=== PATIENT | female | born 1945 | race Caucasian/White ===

== ENCOUNTER 2017-07-18 19:16 | Inpatient (IN) ==
[2017-07-18] MEDS ORDERED: HYDROmorphone 2 MG/ML VIAL IM ONE (20:36)
[2017-07-18] MEDS ORDERED: PROMETHAZINE 50 MG/ML AMPUL IM ONE (20:37)
--- NOTE | 2017-07-18 21:13 | XRay Report ---
CLINICAL INFORMATION: Fall. Left hip pain. TECHNIQUE: AP pelvis and bilateral hips. AP and lateral left hip. COMPARISON: None. FINDINGS: Negative. No left hip fracture. Mild bilaterally symmetric degenerative joint disease. There is a fracture of the superior left pubic bone. There is a nondisplaced left inferior pubic ramus fracture. Right hemipelvis is negative. Sacrum is negative Incidental note is made of atherosclerotic calcification. IMPRESSION: 1. Negative left hip. 2. Fractures of the left superior and inferior pubic rami. Interpreted and Authenticated by: Alphonse Squires 07/18/17
--- NOTE | 2017-07-18 21:24 | Cat Scan Report ---
CLINICAL INFORMATION: Fall. Left hip pain. TECHNIQUE: Thin section axial images through the pelvis and hips. Sagittal and coronal reformatted images COMPARISON: Plain film examination dated 07/18/2017 FINDINGS: Fractures of the left superior pubic bone. There are fractures of the mid superior pubic ramus and near the midline. Nondisplaced left inferior pubic ramus fracture. There is a vertically oriented fracture of the left sacral wing. This is nondisplaced. Right hemipelvis is negative. Hips are negative. No acute fracture. No significant intrapelvic hematoma IMPRESSION: 1. Fractures of the left superior and inferior pubic bone 2. Fracture of the left sacral wing Interpreted and Authenticated by: Alphonse Squires 07/18/17
--- NOTE | 2017-07-18 21:52 | Emergency Department Note ---
Lower Extremity Injury HPI - General Chief Complaint: Extremity Injury, Lower Stated Complaint: L hip pain r/t fall Time Seen by Provider: 07/18/17 19:25 Source: patient Mode of arrival: wheelchair Limitations: no limitations - History of Present Illness HPI Narrative: Patient presents today following a fall, she states she was walking in her home with her walker on hardwood floors, her walker got ahead of her and she slipped and fell landing on her left side on the floor, her states she laid there for approximately 3-4 hours, until he got home and was able to call the ambulance, he states her dog was right there beside her the entire time, she is not sure if she struck her head or has loss of consciousness when they tried to move her the pain was localized in the left hip and pelvis region, denies numbness and tingling into the legs and feet, She was brought in via ambulance MD complaint: hip injury Onset (ago): hour(s) Injury: Left: hip, pelvis Type of Injury: blunt Place: home Severity: moderate Severity scale (1-10): 6 Improves with: nothing Worsens with: weight bearing, movement Context: fall, direct blow Associated symptoms: Reports: unable to bear weight - Related Data Home Medications Medication Instructions Recorded Confirmed aspirin 81 mg tablet,delayed 81 mg PO QDAY tab 01/03/15 07/18/17 release Previous Rx's Medication Instructions Recorded ascorbic acid (vitamin C) 500 mg 500 mg PO QDAY #90 tab 01/09/16 tablet ferrous gluconate 325 mg (36 mg 325 mg PO QDAY #90 tab 01/09/16 iron) tablet isosorbide mononitrate ER 30 mg 30 mg PO QAM #30 tab 07/01/16 tablet,extended release 24 hr atorvastatin 80 mg tablet 80 mg PO QDAY #90 tab 12/18/16 carvedilol 6.25 mg tablet 6.25 mg PO BID #180 tab 12/18/16 spironolactone 25 mg tablet 25 mg PO QDAY #90 tab 12/18/16 duloxetine 40 mg capsule,delayed 40 mg PO QDAY #30 cap 05/06/17 release insulin aspart 100 unit/mL See Dose Instructions SUB-Q TID #3 05/06/17 subcutaneous pen ml insulin glargine 300 unit/mL (1.5 65 unit SUB-Q QHS #1.5 ml 05/06/17 mL) subcutaneous pen furosemide 40 mg tablet 40 mg PO QDAY #90 tab 05/13/17 potassium chloride ER 10 mEq 20 meq PO QDAY #180 cap 06/29/17 capsule,extended release Allergies Allergy/AdvReac Type Severity Reaction Status Date / Time metformin Allergy Unknown Muscle Pain Verified 05/06/17 10:33 statin AdvReac Unknown muscle Uncoded 05/06/17 10:33 cramps Review of Systems All systems ED: reviewed and negative except as stated. Past Medical History - Past Medical History Medical history: Reports: CHF, coronary artery disease, CVA, DM, hyperlipidemia , hypertension, osteoporosis, valvular heart disease Surgical history ED: Reports: angioplasty/stent, pacemaker/AICD - Social History smoking status: Former smoker Alcohol use: Reports: Rarely Drug use: Reports: none Physical Exam Limitations: no limitations General appearance: alert, anxious Head: atraumatic, normocephalic, normal inspection Eye: Present: PERRL ENT: normal exam Neck: Present: normal inspection, full ROM Respiratory: Present: normal lung sounds bilaterally Cardiovascular: Present: regular rate Abdominal: Present: soft, normal bowel sounds Hip/Pelvis: Present: tenderness, swelling, other (Moderate to severe pain with movement and attempted range of motion acute palpatory pain over the greater trochanteric bursa, acute palpatory pain over the left sacroiliac joint down into the left pelvis). Absent: normal inspection, full ROM Knee: Present: normal inspection, full ROM Lower leg: Present: normal inspection, full ROM Ankle: Present: normal inspection, full ROM Foot/toe: Present: normal inspection, full ROM Gait: unable to bear weight Back: Present: normal inspection, tenderness, CVA tenderness (L), muscle spasm, paraspinal tenderness, sciatic notch tenderness (L), straight leg raise (L) (30 degrees), SI tenderness (L) Neurological: Present: alert, oriented X3 Psychiatric: Present: normal affect, normal mood Skin: Present: warm, dry. Absent: rash Course Vital Signs Temperature 97.9 F 07/18/17 19:17 Pulse Rate 93 H 07/18/17 19:17 Respiratory Rate 16 07/18/17 19:17 Blood Pressure 127/68 07/18/17 19:17 Pulse Oximetry (%) 97 07/18/17 19:17 Temperature 97.9 F 07/18/17 19:17 Pulse Rate 99 H 07/18/17 21:54 Respiratory Rate 16 07/18/17 19:17 Blood Pressure 140/77 07/18/17 21:31 Pulse Oximetry (%) 96 07/18/17 21:54 Extremity Injury, Lower - Lab Data Result diagrams: 07/18/17 22:05 07/18/17 22:05 Lab Results 07/18/17 Range/Units 22:05 Band Neutrophils % Not Reportable - Radiology Data Radiology results reviewed: Yes I reviewed the patient's radiology results. Disposition Pt seen by [facility] [employer] [facility]/PA only: Yes Clinical Impression: Pelvis fracture, Sacral fracture Summary: I spoke with Dr. pacheco multiple times in regards to this case, he asked me to begin the admission process, I did speak with Dr. Whitaker, Hospitalist, he asked that I obtain a CBC and CMP and urinalysis prior to admission I will turn this case over to Dr. Pacheco as I am at the end of my shift Condition: Good Referrals: Danielle Gamboa ARNP [Primary Care Provider] -
[2017-07-18 22:48] LABS: Mean Cell Volume 72.8 fL (80.0-100.0); Mean Corpuscular HGB Conc 32.3 g/dL (31.0-36.0); Mean Corpuscular Hemoglobin 23.5 pg (26.0-34.0); Platelet Count 266 K/mcL (140-440); RBC 4.83 M/mcL (4.00-5.20); Red Cell Distribution Width 14.9 % (11.5-14.5)
[2017-07-18 23:06] LABS: ALT/SGPT 14 U/l (0-40); Albumin 4.1 gm/dL (3.2-5.2); Albumin/Globulin Ratio 1.2 (1.0-2.3); Alkaline Phosphatase 81 U/L (39-117); Blood Urea Nitrogen 31 mg/dl (8-23)
[2017-07-18 23:32] LABS: Band Neutrophils % 1 % (0-10); Basophils % (Manual) 1 % (0-2); Lymphocytes % 18 % (15-49); Monocytes % (Manual) 8 % (1-12); Platelet Estimate NORMAL (NORMAL); RBC Morphology NORMAL (NORMAL); Segmented Neutrophils % 72 % (38-78)
--- NOTE | 2017-07-18 23:37 | Internal Med History&Physical ---
Medical - H&P: HPI Patient information: Note initiated : 07/18/17 at 11:33 pm Service Date, if different from initiated Date: [] Patient: Anh Hook a 72 y/o F admitted on for L hip pain r/t fall. Chief Complaint: [] History of present illness: Ms. Hook is a 72 year old Female with multiple medical issues presented to the ER Today after a fall She notes she sustained a mechanical fall today, her walker got out of hand and she fell on her left side, she has been having pain since then, pain is severe, worse with movement, better with rest and pain meds. She denies any other injury , no head injury, she denies any prodromal symptoms, no cp, sob, nausea, palpitation, no LOC, prior to the fall she was not able to take care of self she was brought to the ER for further eval In the ER her X ray of the pelvis and CT pelvis showed a pelvis fracture, no other injuries. Labs show mild leucocytosis, elevated glucose. Patient was admitted to the hospital for pelvis fracture, pain management and rehab. Given he comorbidities and her inherent weak state she will need to be in the hospital for > 3 midnights and therefore is being admitted as inpatient status. Patient is unsure about code status, will have her be full code for now. All systems: reviewed and no additional remarkable complaints except as stated ( as per HPI,) Medical - H&P: PMH Medical history: Medical History (Last Updated 06/03/17 @ 12:28 by Kaylah Almanza) Pelvis fracture (Acute) Sacral fracture (Acute) History of mitral valve stenosis (Chronic) Urinary tract infection (Chronic) Community acquired pneumonia (Chronic) Acute decompensated heart failure (Chronic) Diabetic neuropathy (Chronic) Cerebrovascular accident (Chronic) Insulin dependent diabetes mellitus (Chronic) Anemia (Chronic) SOB (shortness of breath) (Chronic) Chest pain (Chronic) Depression (Chronic) Syncope (Chronic) Osteoporosis (Chronic) Complete heart block (Chronic) Acute ST segment elevation myocardial infarction (Chronic) Neuropathy of both feet (Chronic) Peripheral arterial occlusive disease (Chronic) Coronary artery disease (Chronic) Mitral stenosis (Chronic) History of left heart catheterization (Chronic) CHF (congestive heart failure) (Chronic) Iron deficiency anemia (Chronic) S/P ORIF (open reduction internal fixation) fracture (Chronic) Stroke (Chronic) Fracture of scapula, right, closed (Inactive) Menopausal and postmenopausal disorder (Chronic) Hypertension, essential (Chronic) Hyperlipidemia (Chronic) Fracture of humerus, right, closed (Inactive) DMII (diabetes mellitus, type 2) (Chronic) Ankle fracture, left (Resolved) Bronchitis (Resolved) Bronchospasm, acute (Resolved 11/27/14) CHF exacerbation (Resolved) Cerumen impaction (Resolved) Congestive heart failure (Resolved) Congestive heart failure (Resolved) Debility (Resolved) Dizziness (Resolved) Dyspnea (Resolved) H/O echocardiogram (Resolved 11/15/15) History of chest x-ray (Resolved 11/24/15) History of chest x-ray (Resolved 11/22/15) History of chest x-ray (Resolved 11/21/15) History of chest x-ray (Resolved 11/20/15) History of chest x-ray (Resolved 11/19/15) History of chest x-ray (Resolved 11/18/15) History of chest x-ray (Resolved 11/17/15) History of chest x-ray (Resolved 11/16/15) History of chest x-ray (Resolved 11/15/15) History of echocardiogram (Resolved 11/18/15) Hypertension (Resolved) Insulin dependent diabetes mellitus (Resolved) Orthostatic hypotension (Resolved) PVC (premature ventricular contraction) (Resolved) ST-segment elevation myocardial infarction (STEMI) of inferior wall (Resolved) Surgical history: Past Surgical History (Last Reviewed 05/06/17 @ 10:56 by ELISE Sahu) History of atherectomy (Chronic 05/28/15) H/O angioplasty (Chronic) History of lumbosacral spine surgery (Chronic) History of intraocular lens implant (Chronic) H/O: (Chronic) History of back surgery (Chronic) History of hysterectomy (Chronic) History of percutaneous coronary intervention (Chronic) History of surgery (Chronic) Status post angioplasty with stent (Chronic) Status post placement of cardiac pacemaker (Chronic) Status post PICC central line placement (Resolved 11/16/15) Pertinent family history: Family History (Last Reviewed 05/06/17 @ 10:56 by ELISE Sahu) Father Cardiac disease Mother Cardiac disease Medical - H&P: Meds Home Medications Medication Instructions Recorded Confirmed Type aspirin 81 mg tablet,delayed 81 mg PO QDAY tab 01/03/15 07/18/17 History release ascorbic acid (vitamin C) 500 mg 500 mg PO QDAY #90 tab 01/09/16 07/18/17 Rx tablet ferrous gluconate 325 mg (36 mg 325 mg PO QDAY #90 tab 01/09/16 07/18/17 Rx iron) tablet isosorbide mononitrate ER 30 mg 30 mg PO QAM #30 tab 07/01/16 07/18/17 Rx tablet,extended release 24 hr atorvastatin 80 mg tablet 80 mg PO QDAY #90 tab 12/18/16 07/18/17 Rx carvedilol 6.25 mg tablet 6.25 mg PO BID #180 tab 12/18/16 07/18/17 Rx spironolactone 25 mg tablet 25 mg PO QDAY #90 tab 12/18/16 07/18/17 Rx duloxetine 40 mg capsule,delayed 40 mg PO QDAY #30 cap 05/06/17 07/18/17 Rx release insulin aspart 100 unit/mL See Dose Instructions SUB-Q TID #3 05/06/17 07/18/17 Rx subcutaneous pen ml insulin glargine 300 unit/mL (1.5 65 unit SUB-Q QHS #1.5 ml 05/06/17 07/18/17 Rx mL) subcutaneous pen furosemide 40 mg tablet 40 mg PO QDAY #90 tab 05/13/17 07/18/17 Rx potassium chloride ER 10 mEq 20 meq PO QDAY #180 cap 06/29/17 07/18/17 Rx capsule,extended release Allergies Allergy/AdvReac Type Severity Reaction Status Date / Time metformin Allergy Unknown Muscle Pain Verified 05/06/17 10:33 statin AdvReac Unknown muscle Uncoded 05/06/17 10:33 cramps Medical - H&P: Exam - Constitutional Vitals: Temp Pulse Resp BP Pulse Ox 97.9 F 96 H 16 122/73 89 L 07/18/17 19:17 07/18/17 23:18 07/18/17 19:07/18/17 23:01 07/18/17 23:18 Exam: GENERAL: The patient is a well-developed, well-nourished in no apparent distress. Is alert and oriented x3. VITAL SIGNS: Reviewed and as noted elsewhere. HEENT: Head is normocephalic and atraumatic. Extraocular muscles are intact. Pupils are equal, round, and reactive to light. Nares appeared normal. Mouth appears any without lesions. Mucous membranes are dry NECK: Normal to inspection, Supple, No lymphadenopathy or thyromegaly. LUNGS: Air entry equal on both sides, no wheezing, crackles or rhonchi noted. No accessory muscles of respiration HEART: Regular rate and rhythm normal, S1 and S2 heard, no Gallop, S3 or Rub Noted, No Gross murmur heard. ABDOMEN: Soft, nontender, and nondistended. Positive bowel sounds. No hepatosplenomegaly was noted. NEUROLOGIC: Cranial nerves II through XII are grossly intact. Motor and Sensory System Grossly Intact (full exam limited due to pain) PSYCHIATRIC: Normal affect, Normal Mood. Appropriate Behavior. SKIN: No ulceration or wounds noted, No jaundice, No rash noted. Medical - H&P: Reslt - Labs CBC & Chem 7: 07/18/17 22:05 07/18/17 22:05 Labs: Short CBC 07/18/17 Range/Units 22:05 WBC 12.9 H (4.5-11.0) K/mcL Hgb 11.4 L (12.0-15.0) g/dL Hct 35.2 L (36.0-48.0) % Plt Count 266 (140-440) K/mcL BMP 07/18/17 22:05 Sodium 132 L Potassium 4.3 Chloride 94 L Carbon Dioxide 21 L BUN 31 H Creatinine 1.0 Glucose 407 H Calcium 9.1 Liver Function 07/18/17 Range/Units 22:05 Total Bilirubin 0.6 (0.0-1.0) mg/dL AST 16 (0-37) U/l ALT 14 (0-40) U/l Alkaline Phosphatase 81 (39-117) U/L Albumin 4.1 (3.2-5.2) gm/dL Medical - H&P: A/P - Narrative A/P Narrative: A/P [facility], and OT/ PT planned, will likely need SNF for rehab. Check CK as she was on the floor for 5 hrs? IV fluids. Leucocytosis, clinically no e/o infection, likely reactive, monitor Anemia: Low mcv, seems chr issue, on iron supplements. Intertrigo: clotrimazole in the pelvic region. DM: elevated glucose, resume home dose of insulin, lantus 65 units, and SSI, use lower dose of lantus today, and see how she does Hyponatremia: pseudohyponatremia, monitor, should correct wiht improved glucose CAD/ CHF/ CVA: continue on statin, isosorbide, aspirin for now, HTN: Resume home bp meds, bp is stable, monitor DVT lovenox sq Diet Carb consistent Cardiac Full code for now. Social History - Social History adopted: No caregiver/support person: No foster care: No household members: significant other housing: house lives independently: Yes marital status: other education level: high school service: No snf: No occupational status: retired pets and animals: Yes hx recent travel: No sexually active: Yes - Pets pets and animals: dog(s) - Tobacco smoking status: Former smoker - Alcohol alcohol intake frequency: does not drink - Substance use substance use type: does not use
[2017-07-18 23:46] LABS: Appearance,Urine CLEAR; Bacteria,Urine 0 /hpf (0); Bilirubin,Urine NEG (NEG); Color,Urine YELLOW; Glucose,Urine (UA) >=500 mg/dL (NEG); Leukocyte Esterase,Urine NEG /uL (NEG); Mucus,Urine FEW /hpf (0); Protein,Urine NEG (NEG); Specific Gravity,Urine 1.025 (1.000-1.035); Urine Blood 0.03 mg/dL (<0.03); Urine Hyaline Cast 2 /lpf (0-2); Urine RBC 3 /hpf (0-1); Urine Squamous Epithelial Cell < 1 /hpf (0-4); Urine WBC < 1 /hpf (0-4); Urobilinogen,Urine NEG (NEG)
[2017-07-19] MEDS ORDERED: INSULIN GLARGINE, HUMAN 1 UNIT/0.01 ML SQ ONE ×2 (00:37→01:18)
[2017-07-19] MEDS ORDERED: MAGNESIUM HYDROXIDE 30 ML ORAL.SUSP PO PRN (00:37)
[2017-07-19] MEDS ORDERED: ONDANSETRON 4 MG/2 ML VIAL IV PRN (00:37)
[2017-07-19] MEDS ORDERED: DEXTROSE 31 GM ORAL.SUSP PO PRN (00:37)
[2017-07-19] MEDS ORDERED: NALOXONE HCL 0.4 MG/ML VIAL IV PRN (00:37)
[2017-07-19] MEDS ORDERED: ALBUTEROL SULFATE 2.5 MG/3 ML NEBULIZER NEB PRN (00:37)
[2017-07-19] MEDS ORDERED: DEXTROSE 50% 50 ML VIAL IV PRN (00:37)
[2017-07-19] MEDS: 0.9 % SODIUM CHLORIDE 1,000 ML IV SCH ×3 (00:49→17:21)
[2017-07-19] MEDS: ENOXAPARIN 40 MG/0.4 ML SYRINGE SQ SCH ×2 (00:50→09:40)
[2017-07-19] MEDS ORDERED: ENOXAPARIN 40 MG/0.4 ML SYRINGE ONE (00:57)
[2017-07-19] MEDS: INSULIN LISPRO 1 UNIT/0.01 ML UNIT SQ SCH ×6 (01:12→21:42)
[2017-07-19] MEDS: 0.9 % SODIUM CHLORIDE 10 ML SYRINGE IV SCH ×4 (01:12→21:18)
[2017-07-19] MEDS ORDERED: INSULIN LISPRO 1 UNIT/0.01 ML UNIT SQ ONE (01:19)
[2017-07-19] MEDS: HYDROmorphone 2 MG/ML VIAL IV PRN ×2 (01:25→14:47)
[2017-07-19] MEDS ORDERED: HYDROmorphone 2 MG/ML VIAL ONE (01:32)
[2017-07-19 05:52] LABS: Basophils # (Auto) 0 K/mcL (0.0-0.3); Basophils % (Auto) 0.1 % (0.0-2.0); Eosinophils # (Auto) 0.1 K/mcL (0.0-0.7); Eosinophils % (Auto) 0.6 % (0.0-7.0); Granulocytes % (Auto) 67.5 % (38.0-78.0); Lymphocytes # (Auto) 2.4 K/mcL (1.5-4.8); Lymphocytes % (Auto) 20.3 % (15.5-49.0); Mean Cell Volume 74.7 fL (80.0-100.0); Mean Corpuscular HGB Conc 32.4 g/dL (31.0-36.0); Mean Corpuscular Hemoglobin 24.2 pg (26.0-34.0); Monocytes # (Auto) 1.3 K/mcL (0.1-0.9); Monocytes % (Auto) 11.5 % (1.0-12.0); Platelet Count 246 K/mcL (140-440); RBC 4.59 M/mcL (4.00-5.20); Red Cell Distribution Width 16.2 % (11.5-14.5)
[2017-07-19 06:29] LABS: ALT/SGPT 13 U/l (0-40); Albumin 3.6 gm/dL (3.2-5.2); Alkaline Phosphatase 76 U/L (39-117); Bilirubin,Direct < 0.2 mg/dL (0.0-0.3); Blood Urea Nitrogen 34 mg/dl (8-23); Gamma Glutamyl Transpeptidase 29 U/L (5-36); Uric Acid 6.2 mg/dL (2.5-8.0)
[2017-07-19] MEDS: FERROUS GLUCONATE 324 MG TABLET PO SCH (07:09)
[2017-07-19] MEDS: CARVEDILOL 6.25 MG TABLET PO SCH ×2 (07:09→17:19)
[2017-07-19] MEDS: POTASSIUM CHLORIDE 20 MEQ TABLET PO SCH (07:09)
--- NOTE | 2017-07-19 08:41 | XRay Report ---
CLINICAL INFORMATION: Elevated white blood cell count COMPARISON: 07/15/2015 FINDINGS: Pacemaker leads are in satisfactory position. The heart is mildly enlarged, but stable. Small hiatal hernia again noted. Mediastinum is otherwise normal. Pulmonary vessels are within normal limits. Lungs are clear. No effusions. IMPRESSION: Borderline, stable cardiomegaly and small hiatal hernia. No acute disease Interpreted and Authenticated by: Alphonse Vincent 07/19/17
[2017-07-19] MEDS: ISOSORBIDE MONONITRATE 30 MG TAB.XL.24H PO SCH (09:39)
[2017-07-19] MEDS: oxyCODONE HCL 5 MG TABLET PO PRN ×2 (09:39→14:48)
[2017-07-19] MEDS: ASCORBIC ACID 500 MG TABLET PO SCH (09:39)
[2017-07-19] MEDS: ASPIRIN 81 MG TAB.CHEW PO SCH (09:39)
[2017-07-19] MEDS: ACETAMINOPHEN 325 MG TABLET PO PRN ×2 (09:40→17:34)
[2017-07-19] MEDS: SPIRONOLACTONE 25 MG TABLET PO SCH (09:40)
[2017-07-19] MEDS: CLOTRIMAZOLE CRM 1% 1 DOSE TUBE TOPICAL SCH ×2 (09:40→21:43)
[2017-07-19] MEDS: DULoxetine 20 MG CAPSULE PO SCH (09:41)
--- NOTE | 2017-07-19 13:43 | Internal Med Progress Note ---
Medical - PN: Subj Patient information: Note initiated : 07/19/17 at 1:41 pm Service Date, if different from initiated Date: [] Patient: Anh Hook a 72 y/o F admitted on 07/19/17 for L hip pain r/t fall. Chief Complaint: [] Interval history: Ms. Hook is a 72 year old Female with multiple medical issues presented to the ER Today after a fall She notes she sustained a mechanical fall today, her walker got out of hand and she fell on her left side, she has been having pain since then, pain is severe, worse with movement, better with rest and pain meds. She denies any other injury , no head injury, she denies any prodromal symptoms, no cp, sob, nausea, palpitation, no LOC, prior to the fall she was not able to take care of self she was brought to the ER for further eval In the ER her X ray of the pelvis and CT pelvis showed a pelvis fracture, no other injuries. Labs show mild leucocytosis, elevated glucose. Patient was admitted to the hospital for pelvis fracture, pain management and rehab. Given he comorbidities and her inherent weak state she will need to be in the hospital for > 3 midnights and therefore is being admitted as inpatient status. Patient is unsure about code status, will have her be full code for now. Jul 19 Patient seen examined, no acute overnight events, pt still has pain, not worked with PT yet, encouraged to do so no other complaints lying comfortably in bed for now. Pertinent ROS: Denies headache, dizziness Denies chest pain, palpitations Denies cough or shortness of breath Denies abdominal pain, nausea or vomiting. - Constitutional Vitals: Vital Signs Temp Pulse Resp BP Pulse Ox 97.7 F 91 H 14 101/61 96 07/19/17 12:00 07/19/17 12:00 07/19/17 12:00 07/19/17 12:00 07/19/17 12:00 Period Temp Pulse Resp BP Sys/Antonio Pulse Ox Last 24 Hr 97.7 F-98.9 F 80-99 14-20 89-157/39-89 87-100 Intake and Output 07/18/17 07/19/17 07/19/17 21:59 05:59 13:59 Intake Total 1000 / 1000 Output Total 1 / 1 200 / 200 Balance -1 / -1 800 / 800 Weight 173 lb 176 lb Intake & Output: Intake & Output 07/18/17 07/19/17 07/19/17 21:59 05:59 13:59 Intake Total 1000 / 1000 Output Total 200 / 200 Balance -1 / -1 800 / 800 Weight 173 lb 176 lb Intake: IV 1000 / 1000 Sodium Chloride 0.9% 1,000 ml @ 1000 / 1000 125 mls/hr IV .Q8H [facility] Rx#: [id number] Output: Void Amount 200 / 200 # of times incontinent of urine Other: Meal Lunch Percent of Meal Consumed 75% Feeding Ability Independent # Voids 1 # Bowel Movements 1 Exam: Constitutional; Afebrile, cooperative, alert, not in distress. Eyes- No icterus, , No periorbital swelling Ears- Ext ear normal, hearing normal to conversation. Neck- Midline trachea, supple Respiratory system: Air Entry equal on both sides, No crackles or wheezing, no rhonchi. CVS- Rate rhythm regular, S1,S2 heard, no gallop, no rub. 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 Medical - PN: Obj Da - Labs CBC & Chem 7: 07/19/17 04:54 07/19/17 04:54 Labs: Abnormal Lab Results 07/19/17 07/19/17 07/18/17 04:54 04:54 22:50 WBC 11.8 H Hgb 11.1 L Hct 34.3 L MCV 74.7 L MCH 24.2 L RDW 16.2 H [place] # (Auto) 1.3 H Sodium Chloride Carbon Dioxide 20 L Anion Gap BUN 34 H Creatinine 1.2 H Glucose 286 H Lactate Dehydrogenase 298 H Urine Glucose (UA) >=500 A Urine Ketones 20 A Urine Occult Blood 0.03 A Urine RBC 3 H 07/18/17 07/18/17 22:05 22:05 WBC 12.9 H Hgb 11.4 L Hct 35.2 L MCV 72.8 L MCH 23.5 L RDW 14.9 H [place] # (Auto) Sodium 132 L Chloride 94 L Carbon Dioxide 21 L Anion Gap 17.0 H BUN 31 H Creatinine Glucose 407 H Lactate Dehydrogenase Urine Glucose (UA) Urine Ketones Urine Occult Blood Urine RBC Meds: Medications Acetaminophen (Tylenol) 650 mg PO Q6HP PRN PRN Reason: PAIN/FEVER > 101 Last Admin: 07/19/17 09:40 Dose: 650 mg Albuterol Sulfate (Ventolin) 2.5 mg NEB Q2HP PRN PRN Reason: Shortness Of Breath Ascorbic Acid (Vitamin C) 500 mg PO QDAY [facility] Last Admin: 07/19/17 09:39 Dose: 500 mg Aspirin (Aspirin) 81 mg PO DAILY [facility] Last Admin: 07/19/17 09:39 Dose: 81 mg Atorvastatin Calcium (Lipitor) 80 mg PO [facility] Last Admin: 07/19/17 07:09 Dose: 6.25 mg Clotrimazole (Mycelex Crm 1%) 1 dose TOPICAL BID [facility] Last Admin: 07/19/17 09:40 Dose: 1 dose Dextrose (Dextrose 50%) 0 ml IV UD PRN PRN Reason: Hypoglycemia Diagnostic Test (Pha) (Accu-Chek) 1 each FS [facility] Last Admin: 07/19/17 12:10 Dose: 1 each Duloxetine HCl (Cymbalta) 40 mg PO QDAY [facility] Last Admin: 07/19/17 09:41 Dose: 40 mg Enoxaparin Sodium (Lovenox) 40 mg SQ DAILY [facility] Last Admin: 07/19/17 09:40 Dose: 40 mg Ferrous [facility]con[facility] ([facility]ergon) [facility] Last Admin: 07/19/17 07:09 Dose: 324 mg Glucose (Insta-Glucose) 15 gm PO PRN PRN PRN Reason: Hypoglycemia Hydromorphone HCl (Dilaudid) 0.5 mg IV Q2HP PRN PRN Reason: PAIN LEVEL > 6 Last Admin: 07/19/17 01:25 Dose: 0.5 mg Sodium Chloride (Sodium Chloride 0.9%) 1,000 mls @ 125 mls/hr IV .Q8H [facility] Stop: 07/20/17 00:36 Last Admin: 07/19/17 09:11 Dose: 125 mls/hr Insulin Glargine (Lantus) 65 unit SQ [facility] Insulin Human Lispro (Humalog) 0 unit SQ [facility] PRN Reason: Protocol Last Admin: 07/19/17 12:13 Dose: 12 unit Isosorbide Mononitrate (Imdur) 30 mg PO QAM [facility] Last Admin: 07/19/17 09:39 Dose: 30 mg Magnesium Hydroxide (Milk Of Magnesia) 30 ml PO DAILYP PRN PRN Reason: Constipation Naloxone HCl (Narcan) 0.1 mg IV Q2MIN PRN PRN Reason: Opiate Reversal Ondansetron HCl (Zofran) 4 mg IV Q6HP PRN PRN Reason: Nausea And Vomiting Oxycodone HCl (Roxicodone) 5 mg PO Q4HP PRN PRN Reason: PAIN LEVEL 3-6 Last Admin: 07/19/17 09:39 Dose: 5 mg Potassium Chloride (Kdur) 20 meq PO QAC [facility] Last Admin: 07/19/17 07:09 Dose: 20 meq Senna (Senokot) 2 tab PO [facility] Sodium Chloride (Saline Flush) 10 ml IV Q8 [facility] Last Admin: 07/19/17 12:14 Dose: Not Given Spironolactone (Aldactone) 25 mg PO QDAY [facility] Last Admin: 07/19/17 09:40 Dose: 25 mg Medical - PN: A/P - Time Spent With Patient Total time spent is greater than 50% in coordination of care (as documented) at patient's floor/unit and/or counseling patient: - Narrative A/P Narrative: A/P Pelvis fracture: [facility] to [facility] fall, pain control, and OT/ PT planned, will likely need SNF for rehab. CK is normal. If condition worsens or pt not able to tolerate therapy, will see if ortho can eval patient Leucocytosis, clinically no e/o infection, likely reactive, monitor Anemia: Low mcv, seems chr issue, on iron supplements. Intertrigo: clotrimazole in the pelvic region. DM: elevated glucose, resume home dose of insulin, lantus 65 units, and SSI, glucose is high, change SSI to med scale today and titrate insulin. Hyponatremia: pseudohyponatremia, monitor, should correct with improved glucose CAD/ CHF/ CVA: continue on statin, isosorbide, aspirin for now, HTN: Resume home bp meds, bp is stable, monitor DVT lovenox sq Diet Carb consistent Cardiac Full code for now. Medical - PN: Qual - Stroke Symptom Onset Unknown: No - VTE Deep Vein Thrombosis/Pulmonary Embolism Present on Admission: No
[2017-07-19] MEDS: ATORVASTATIN 20 MG TABLET PO SCH (21:41)
[2017-07-19] MEDS: SENNOSIDES 1 TABLET PO SCH (21:41)
[2017-07-19] MEDS: INSULIN GLARGINE, HUMAN 1 UNIT/0.01 ML SQ SCH (21:41)
[2017-07-20] MEDS: ACETAMINOPHEN 325 MG TABLET PO PRN (03:29)
[2017-07-20 05:30] LABS: Basophils # (Auto) 0 K/mcL (0.0-0.3); Basophils % (Auto) 0.5 % (0.0-2.0); Eosinophils # (Auto) 0.3 K/mcL (0.0-0.7); Eosinophils % (Auto) 3.6 % (0.0-7.0); Granulocytes % (Auto) 63.3 % (38.0-78.0); Lymphocytes % (Auto) 22.3 % (15.5-49.0); Mean Cell Volume 74.9 fL (80.0-100.0); Mean Corpuscular HGB Conc 32.3 g/dL (31.0-36.0); Mean Corpuscular Hemoglobin 24.2 pg (26.0-34.0); Monocytes # (Auto) 0.9 K/mcL (0.1-0.9); Monocytes % (Auto) 10.3 % (1.0-12.0); Platelet Count 216 K/mcL (140-440); RBC 4.03 M/mcL (4.00-5.20); Red Cell Distribution Width 16.5 % (11.5-14.5)
[2017-07-20 05:47] LABS: ALT/SGPT 12 U/l (0-40); Albumin 3.5 gm/dL (3.2-5.2); Albumin/Globulin Ratio 1.3 (1.0-2.3); Alkaline Phosphatase 65 U/L (39-117); Bilirubin,Direct < 0.2 mg/dL (0.0-0.3); Blood Urea Nitrogen 31 mg/dl (8-23); Gamma Glutamyl Transpeptidase 26 U/L (5-36); Uric Acid 6.6 mg/dL (2.5-8.0)
[2017-07-20] MEDS: 0.9 % SODIUM CHLORIDE 10 ML SYRINGE IV SCH ×3 (05:49→20:27)
[2017-07-20] MEDS: INSULIN LISPRO 1 UNIT/0.01 ML UNIT SQ SCH ×4 (07:28→20:26)
[2017-07-20] MEDS ORDERED: 0.9 % SODIUM CHLORIDE 1,000 ML IV SCH (07:45)
[2017-07-20] MEDS: ISOSORBIDE MONONITRATE 30 MG TAB.XL.24H PO SCH (08:42)
[2017-07-20] MEDS: POTASSIUM CHLORIDE 20 MEQ TABLET PO SCH (08:42)
[2017-07-20] MEDS: oxyCODONE HCL 5 MG TABLET PO PRN ×2 (08:42→15:00)
[2017-07-20] MEDS: FERROUS GLUCONATE 324 MG TABLET PO SCH (08:43)
[2017-07-20] MEDS: ASPIRIN 81 MG TAB.CHEW PO SCH (08:43)
[2017-07-20] MEDS: CARVEDILOL 6.25 MG TABLET PO SCH ×2 (08:43→16:42)
[2017-07-20] MEDS: SPIRONOLACTONE 25 MG TABLET PO SCH (08:43)
[2017-07-20] MEDS: ASCORBIC ACID 500 MG TABLET PO SCH (08:43)
[2017-07-20] MEDS: DULoxetine 20 MG CAPSULE PO SCH (08:44)
[2017-07-20] MEDS: ENOXAPARIN 40 MG/0.4 ML SYRINGE SQ SCH (08:44)
[2017-07-20] MEDS: CLOTRIMAZOLE CRM 1% 1 DOSE TUBE TOPICAL SCH ×2 (08:50→20:28)
--- NOTE | 2017-07-20 10:47 | Internal Med Progress Note ---
Medical - PN: Subj Patient information: Note initiated : 07/20/17 at 10:44 am Service Date, if different from initiated Date: [] Patient: Anh Hook 72 y/o F admitted on 07/19/17 for L HipPain r/t Fall/ Pelvis Fracture,Sacral Fracture. Chief Complaint: [] Interval history: Ms. Hook is a 72 year old Female with multiple medical issues presented to the ER Today after a fall She notes she sustained a mechanical fall today, her walker got out of hand and she fell on her left side, she has been having pain since then, pain is severe, worse with movement, better with rest and pain meds. She denies any other injury , no head injury, she denies any prodromal symptoms, no cp, sob, nausea, palpitation, no LOC, prior to the fall she was not able to take care of self she was brought to the ER for further eval In the ER her X ray of the pelvis and CT pelvis showed a pelvis fracture, no other injuries. Labs show mild leucocytosis, elevated glucose. Patient was admitted to the hospital for pelvis fracture, pain management and rehab. Given he comorbidities and her inherent weak state she will need to be in the hospital for > 3 midnights and therefore is being admitted as inpatient status. Patient is unsure about code status, will have her be full code for now. Jul 19 Patient seen examined, no acute overnight events, pt still has pain, not worked with PT yet, encouraged to do so no other complaints lying comfortably in bed for now. Jul 20 Patient seen examined, no acute ovenright events, did not work with pt yesterday , still feels has pain add scheduled tylnoel 1mg q8hrs to her regime, add celecoxib 200mg daily, continue oxycodone and IV dilaudid prn for now. Pt encouraged to work with PT to help with ambulation slight worsening of renal function, IVF ordered. Pertinent ROS: Denies headache, dizziness Denies chest pain, palpitations Denies cough or shortness of breath Denies abdominal pain, nausea or vomiting. - Constitutional Vitals: Vital Signs Temp Pulse Resp BP Pulse Ox 97.1 F 93 H 14 107/70 96 07/20/17 06:49 07/20/17 03:57 07/20/17 06:49 07/20/17 06:49 07/20/17 06:49 Period Temp Pulse Resp BP Sys/Antonio Pulse Ox Last 24 Hr 97.1 F-98.5 F 87-93 12-16 91-115/61-70 95-98 Intake and Output 07/19/17 07/20/17 07/20/17 21:59 05:59 13:59 Intake Total 1900 / 1900 1200 / 1200 Output Total 200 / 200 225 / 225 Balance 1899 / 1899 1000 / 1000 -225 / -225 Weight 183 lb Intake & Output: Intake & Output 07/19/17 07/20/17 07/20/17 21:59 05:59 13:59 Intake Total 1900 / 1900 1200 / 1200 Output Total 200 / 200 225 / 225 Balance 1899 / 1899 1000 / 1000 -225 / -225 Weight 183 lb Intake: IV 1000 / 1000 1000 / 1000 Sodium Chloride 0.9% 1,000 ml @ 1000 / 1000 125 mls/hr IV .Q8H NHUNG Rx#: [id number] Oral 900 / 900 200 / 200 Output: Void Amount 200 / 200 225 / 225 # of times incontinent of urine Other: Meal Dinner Breakfast Percent of Meal Consumed 25% 25% Feeding Ability Independent # Bowel Movements 1 Exam: Constitutional; Afebrile, cooperative, alert, not in distress. Eyes- No icterus, , No periorbital swelling Ears- Ext ear normal, hearing normal to conversation. Neck- Midline trachea, supple Respiratory system: Air Entry equal on both sides, No crackles or wheezing, no rhonchi. CVS- Rate rhythm regular, S1,S2 heard, no gallop, no rub. 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 Medical - PN: Obj Da - Labs CBC & Chem 7: 07/20/17 04:10 07/20/17 04:10 Labs: Abnormal Lab Results 07/20/17 07/20/17 07/19/17 04:10 04:10 04:54 WBC Hgb 9.7 L Hct 30.2 L MCV 74.9 L MCH 24.2 L RDW 16.5 H [place] # (Auto) Sodium Chloride Carbon Dioxide 21 L 20 L Anion Gap BUN 31 H 34 H Creatinine 1.3 H 1.2 H Glucose 106 H 286 H Calcium 8.2 L Phosphorus 2.5 L Lactate Dehydrogenase 264 H 298 H Urine Glucose (UA) Urine Ketones Urine Occult Blood Urine RBC 07/19/17 07/18/17 07/18/17 04:54 22:50 22:05 WBC 11.8 H Hgb 11.1 L Hct 34.3 L MCV 74.7 L MCH 24.2 L RDW 16.2 H [place] # (Auto) 1.3 H Sodium 132 L Chloride 94 L Carbon Dioxide 21 L Anion Gap 17.0 H BUN 31 H Creatinine Glucose 407 H Calcium Phosphorus Lactate Dehydrogenase Urine Glucose (UA) >=500 A Urine Ketones 20 A Urine Occult Blood 0.03 A Urine RBC 3 H 07/18/17 22:05 WBC 12.9 H Hgb 11.4 L Hct 35.2 L MCV 72.8 L MCH 23.5 L RDW 14.9 H [place] # (Auto) Sodium Chloride Carbon Dioxide Anion Gap BUN Creatinine Glucose Calcium Phosphorus Lactate Dehydrogenase Urine Glucose (UA) Urine Ketones Urine Occult Blood Urine RBC Meds: Medications Acetaminophen (Tylenol) 1,000 mg PO Q8H REPLACED BY [facility] Albuterol Sulfate (Ventolin) 2.5 mg NEB Q2HP PRN PRN Reason: Shortness Of Breath Ascorbic Acid (Vitamin C) 500 mg PO QDAY REPLACED BY [facility] Last Admin: 07/20/17 08:43 Dose: 500 mg Aspirin (Aspirin) 81 mg PO DAILY REPLACED BY [facility] Last Admin: 07/20/17 08:43 Dose: 81 mg Atorvastatin Calcium (Lipitor) 80 mg PO HS REPLACED BY [facility] Last Admin: 07/19/17 21:41 Dose: 80 mg Carvedilol (Coreg) 6.25 mg PO BIDCC REPLACED BY [facility] Last Admin: 07/20/17 08:43 Dose: 6.25 mg Celecoxib (Celebrex) 200 mg PO DAILY REPLACED BY [facility] Clotrimazole (Mycelex Crm 1%) 1 dose TOPICAL BID REPLACED BY [facility] Last Admin: 07/20/17 08:50 Dose: 1 dose Dextrose (Dextrose 50%) 0 ml IV UD PRN PRN Reason: Hypoglycemia Diagnostic Test (Pha) (Accu-Chek) 1 each FS ACHS REPLACED BY [facility] Last Admin: 07/20/17 07:28 Dose: 1 each Duloxetine HCl (Cymbalta) 40 mg PO QDAY REPLACED BY [facility] Last Admin: 07/20/17 08:44 Dose: 40 mg Enoxaparin Sodium (Lovenox) 40 mg SQ DAILY REPLACED BY [facility] Last Admin: 07/20/17 08:44 Dose: 40 mg Ferrous Gluconate (Fergon) 324 mg PO [facility] Last Admin: 07/20/17 08:43 Dose: 324 mg Glucose (Insta-Glucose) 15 gm PO PRN PRN PRN Reason: Hypoglycemia Hydromorphone HCl (Dilaudid) 0.5 mg IV Q2HP PRN PRN Reason: PAIN LEVEL > 6 Last Admin: 07/19/17 14:47 Dose: 0.5 mg Sodium Chloride (Sodium Chloride 0.9%) 1,000 mls @ 125 mls/hr IV .Q8H REPLACED BY [facility] Stop: 07/20/17 15:44 Last Admin: 07/20/17 08:45 Dose: 125 mls/hr Insulin Glargine (Lantus) 65 unit SQ [facility] Last Admin: 07/19/17 21:41 Dose: 65 unit Insulin Human Lispro (Humalog) 0 unit SQ [facility] PRN Reason: Protocol Last Admin: 07/20/17 07:28 Dose: Not Given Isosorbide Mononitrate (Imdur) [address] [facility] Last Admin: 07/20/17 08:42 Dose: 30 mg Magnesium Hydroxide (Milk Of Magnesia) 30 ml PO DAILYP PRN PRN Reason: Constipation Naloxone HCl (Narcan) 0.1 mg IV Q2MIN PRN PRN Reason: Opiate Reversal Ondansetron HCl (Zofran) 4 mg IV Q6HP PRN PRN Reason: Nausea And Vomiting Oxycodone HCl (Roxicodone) 5 mg PO Q4HP PRN PRN Reason: PAIN LEVEL 3-6 Last Admin: 07/20/17 08:42 Dose: 5 mg Potassium Chloride (Kdur) 20 meq PO [facility] Last Admin: 07/20/17 08:42 Dose: 20 meq Senna (Senokot) 2 tab PO [facility] Last Admin: 07/19/17 21:41 Dose: 2 tab Sodium Chloride (Saline Flush) 10 ml IV Q8 REPLACED BY [facility] Last Admin: 07/20/17 05:49 Dose: 10 ml Spironolactone (Aldactone) 25 mg PO QDAY REPLACED BY [facility] Last Admin: 07/20/17 08:43 Dose: 25 mg Medical - PN: A/P - Time Spent With Patient Total time spent is greater than 50% in coordination of care (as documented) at patient's floor/unit and/or counseling patient: - Narrative A/P Narrative: A/P Pelvis fracture: secondary to [facility] fall, pain control, and OT/ PT planned, will likely need SNF for rehab. CK is normal. try to achieve pain control, and improve ambulation. Leucocytosis, clinically no e/o infection, improving trend. Anemia: Low mcv, seems chr issue, on iron supplements. Intertrigo: clotrimazole in the pelvic region. DM: elevated glucose on presentation, much better now. . Hyponatremia: resolved. CAD/ CHF/ CVA: continue on statin, isosorbide, aspirin for now, HTN: Resume home bp meds, bp is stable, monitor DVT lovenox sq Diet Carb consistent Cardiac Full code for now. Medical - PN: Qual - Stroke Symptom Onset Unknown: No - VTE Deep Vein Thrombosis/Pulmonary Embolism Present on Admission: No
[2017-07-20] MEDS ORDERED: ACETAMINOPHEN 325 MG TABLET PO SCH (11:00)
[2017-07-20] MEDS: ACETAMINOPHEN 500 MG TABLET PO SCH ×2 (11:54→20:29)
[2017-07-20] MEDS: CELECOXIB 200 MG CAPSULE PO SCH (11:54)
[2017-07-20] MEDS: INSULIN GLARGINE, HUMAN 1 UNIT/0.01 ML SQ SCH (20:25)
[2017-07-20] MEDS: ATORVASTATIN 20 MG TABLET PO SCH (20:26)
[2017-07-20] MEDS: SENNOSIDES 1 TABLET PO SCH (20:27)
[2017-07-21] MEDS: ACETAMINOPHEN 500 MG TABLET PO SCH ×3 (03:52→20:14)
[2017-07-21 05:44] LABS: Basophils # (Auto) 0 K/mcL (0.0-0.3); Basophils % (Auto) 0.3 % (0.0-2.0); Eosinophils # (Auto) 0.4 K/mcL (0.0-0.7); Eosinophils % (Auto) 4.1 % (0.0-7.0); Granulocytes % (Auto) 67.3 % (38.0-78.0); Lymphocytes # (Auto) 1.6 K/mcL (1.5-4.8); Lymphocytes % (Auto) 17.7 % (15.5-49.0); Mean Cell Volume 74.2 fL (80.0-100.0); Mean Corpuscular HGB Conc 32.8 g/dL (31.0-36.0); Mean Corpuscular Hemoglobin 24.4 pg (26.0-34.0); Monocytes % (Auto) 10.6 % (1.0-12.0); Platelet Count 218 K/mcL (140-440); RBC 3.91 M/mcL (4.00-5.20); Red Cell Distribution Width 16.6 % (11.5-14.5)
[2017-07-21 06:06] LABS: ALT/SGPT 13 U/l (0-40); Albumin 3.2 gm/dL (3.2-5.2); Albumin/Globulin Ratio 1.1 (1.0-2.3); Alkaline Phosphatase 62 U/L (39-117); Bilirubin,Direct < 0.2 mg/dL (0.0-0.3); Blood Urea Nitrogen 25 mg/dl (8-23); Gamma Glutamyl Transpeptidase 27 U/L (5-36); Uric Acid 6.2 mg/dL (2.5-8.0)
[2017-07-21] MEDS: 0.9 % SODIUM CHLORIDE 10 ML SYRINGE IV SCH ×3 (06:09→20:15)
[2017-07-21] MEDS: INSULIN LISPRO 1 UNIT/0.01 ML UNIT SQ SCH ×4 (08:43→20:14)
[2017-07-21] MEDS: POTASSIUM CHLORIDE 20 MEQ TABLET PO SCH (08:44)
[2017-07-21] MEDS: SPIRONOLACTONE 25 MG TABLET PO SCH (08:44)
[2017-07-21] MEDS: FAMOTIDINE/PF 20 MG/2 ML VIAL IV SCH ×2 (08:44→20:13)
[2017-07-21] MEDS: ISOSORBIDE MONONITRATE 30 MG TAB.XL.24H PO SCH (08:45)
[2017-07-21] MEDS: oxyCODONE HCL 5 MG TABLET PO PRN ×2 (08:45→17:18)
[2017-07-21] MEDS: ASCORBIC ACID 500 MG TABLET PO SCH (08:46)
[2017-07-21] MEDS: DULoxetine 20 MG CAPSULE PO SCH (08:46)
[2017-07-21] MEDS: CELECOXIB 200 MG CAPSULE PO SCH (08:46)
[2017-07-21] MEDS: CARVEDILOL 6.25 MG TABLET PO SCH ×2 (08:46→18:16)
[2017-07-21] MEDS: ASPIRIN 81 MG TAB.CHEW PO SCH (08:46)
[2017-07-21] MEDS: FERROUS GLUCONATE 324 MG TABLET PO SCH (08:46)
[2017-07-21] MEDS: CLOTRIMAZOLE CRM 1% 1 DOSE TUBE TOPICAL SCH ×2 (09:42→20:15)
[2017-07-21] MEDS: ENOXAPARIN 40 MG/0.4 ML SYRINGE SQ SCH (09:43)
--- NOTE | 2017-07-21 13:50 | Internal Med Progress Note ---
Medical - PN: Subj Patient information: Note initiated : 07/21/17 at 1:47 pm Service Date, if different from initiated Date: [] Patient: Anh Hook a 72 y/o F admitted on 07/19/17 for L HipPain r/t Fall/ Pelvis Fracture,Sacral Fracture. Chief Complaint: [] Interval history: Ms. Hook is a 72 year old Female with multiple medical issues presented to the ER Today after a fall She notes she sustained a mechanical fall today, her walker got out of hand and she fell on her left side, she has been having pain since then, pain is severe, worse with movement, better with rest and pain meds. She denies any other injury , no head injury, she denies any prodromal symptoms, no cp, sob, nausea, palpitation, no LOC, prior to the fall she was not able to take care of self she was brought to the ER for further eval In the ER her X ray of the pelvis and CT pelvis showed a pelvis fracture, no other injuries. Labs show mild leucocytosis, elevated glucose. Patient was admitted to the hospital for pelvis fracture, pain management and rehab. Given he comorbidities and her inherent weak state she will need to be in the hospital for > 3 midnights and therefore is being admitted as inpatient status. Patient is unsure about code status, will have her be full code for now. Jul 19 Patient seen examined, no acute overnight events, pt still has pain, not worked with PT yet, encouraged to do so no other complaints lying comfortably in bed for now. Jul 20 Patient seen examined, no acute ovenright events, did not work with pt yesterday , still feels has pain add scheduled tylnoel 1mg q8hrs to her regime, add celecoxib 200mg daily, continue oxycodone and IV dilaudid prn for now. Pt encouraged to work with PT to help with ambulation slight worsening of renal function, IVF ordered. Jul 21 patient seen examined, no acute issues, unable to void completely likely from pain, will monitor. Paitent renal functin is better with fluids, pt has poor oral intake, will start just give another 1L ns to maintain hydration. Patient still complaints of pelvis pain, and not very keen on moving, increase dose of oxycodone from 5mg to 10mg Consulted Ortho for further evaluation, They reviewed CT and noted that patient will likely not need any surgical intervention, pain management and therapy is needed likely needs SNF, anticipate d/c tomorrow Pertinent ROS: Denies headache, dizziness Denies chest pain, palpitations Denies cough or shortness of breath Denies abdominal pain, nausea or vomiting. - Constitutional Vitals: Vital Signs Temp Pulse Resp BP Pulse Ox 97.0 F 80 14 94/61 96 07/21/17 11:36 07/21/17 04:00 07/21/17 11:36 07/21/17 11:36 07/21/17 11:36 Period Temp Pulse Resp BP Sys/Antonio Pulse Ox Last 24 Hr 97.0 F-98.2 F 80-81 12-16 91-128/53-79 95-97 Intake and Output 07/20/17 07/21/17 07/21/17 21:59 05:59 13:59 Intake Total 1450 / 1450 150 / 150 300 / 300 Output Total 200 / 200 100 / 100 250 / 250 Balance 1250 / 1250 50 / 50 50 / 50 Weight 190 lb Intake & Output: Intake & Output 07/20/17 07/21/17 07/21/17 21:59 05:59 13:59 Intake Total 1450 / 1450 150 / 150 300 / 300 Output Total 200 / 200 100 / 100 250 / 250 Balance 1250 / 1250 50 / 50 50 / 50 Weight 190 lb Intake: IV 1000 / 1000 Oral 450 / 450 150 / 150 300 / 300 Output: Void Amount 200 / 200 100 / 100 Urine/Stool Mix 250 / 250 Other: Meal Dinner Breakfast Percent of Meal Consumed 25% 100% Exam: Constitutional; Afebrile, cooperative, alert, not in distress. Eyes- No icterus, , No periorbital swelling Ears- Ext ear normal, hearing normal to conversation. Neck- Midline trachea, supple Respiratory system: Air Entry equal on both sides, No crackles or wheezing, no rhonchi. CVS- Rate rhythm regular, S1,S2 heard, no gallop, no rub. 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 Medical - PN: Obj Da - Labs CBC & Chem 7: 07/21/17 04:35 07/21/17 04:35 Labs: Abnormal Lab Results 07/21/17 07/21/17 07/20/17 04:35 04:35 04:10 WBC RBC 3.91 L Hgb 9.5 L Hct 29.0 L MCV 74.2 L MCH 24.4 L RDW 16.6 H [place] # (Auto) 1.0 H Sodium Chloride 109 H Carbon Dioxide 19 L 21 L Anion Gap BUN 25 H 31 H Creatinine 1.3 H Glucose 106 H Calcium 8.1 L 8.2 L Phosphorus 2.3 L 2.5 L Lactate Dehydrogenase 259 H 264 H Urine Glucose (UA) Urine Ketones Urine Occult Blood Urine RBC 07/20/17 07/19/17 07/19/17 04:10 04:54 04:54 WBC 11.8 H RBC Hgb 9.7 L 11.1 L Hct 30.2 L 34.3 L MCV 74.9 L 74.7 L MCH 24.2 L 24.2 L RDW 16.5 H 16.2 H [place] # (Auto) 1.3 H Sodium Chloride Carbon Dioxide 20 L Anion Gap BUN 34 H Creatinine 1.2 H Glucose 286 H Calcium Phosphorus Lactate Dehydrogenase 298 H Urine Glucose (UA) Urine Ketones Urine Occult Blood Urine RBC 07/18/17 07/18/17 07/18/17 22:50 22:05 22:05 WBC 12.9 H RBC Hgb 11.4 L Hct 35.2 L MCV 72.8 L MCH 23.5 L RDW 14.9 H [place] # (Auto) Sodium 132 L Chloride 94 L Carbon Dioxide 21 L Anion Gap 17.0 H BUN 31 H Creatinine Glucose 407 H Calcium Phosphorus Lactate Dehydrogenase Urine Glucose (UA) >=500 A Urine Ketones 20 A Urine Occult Blood 0.03 A Urine RBC 3 H Meds: Medications Acetaminophen (Tylenol) 1,000 mg PO Q8H [facility] Last Admin: 07/21/17 11:58 Dose: 1,000 mg Albuterol Sulfate (Ventolin) 2.5 mg NEB Q2HP PRN PRN Reason: Shortness Of Breath Ascorbic Acid (Vitamin C) 500 mg PO QDAY [facility] Last Admin: 07/21/17 08:46 Dose: 500 mg Aspirin (Aspirin) 81 mg PO DAILY [facility] Last Admin: 07/21/17 08:46 Dose: 81 mg Atorvastatin Calcium (Lipitor) 80 mg PO HS [facility] Last Admin: 07/20/17 20:26 Dose: 80 mg Carvedilol (Coreg) 6.25 mg PO BIDCC [facility] Last Admin: 07/21/17 08:46 Dose: 6.25 mg Celecoxib (Celebrex) 200 mg PO DAILY [facility] Last Admin: 07/21/17 08:46 Dose: 200 mg Clotrimazole (Mycelex Crm 1%) 1 dose TOPICAL BID [facility] Last Admin: 07/21/17 09:42 Dose: 1 dose Dextrose (Dextrose 50%) 0 ml IV UD PRN PRN Reason: Hypoglycemia Diagnostic Test (Pha) (Accu-Chek) 1 each FS ACHS [facility] Last Admin: 07/21/17 11:49 Dose: 1 each Duloxetine HCl (Cymbalta) 40 mg PO QDAY [facility] Last Admin: 07/21/17 08:46 Dose: 40 mg Enoxaparin Sodium (Lovenox) 40 mg SQ DAILY [facility] Last Admin: 07/21/17 09:43 Dose: 40 mg Famotidine (Pepcid) 20 mg IV Q12 [facility] Last Admin: 07/21/17 08:44 Dose: 20 mg [facility]ous [facility] ([facility]on) [facility] Last Admin: 07/21/17 08:46 Dose: 324 mg Glucose (Insta-Glucose) 15 gm PO PRN PRN PRN Reason: Hypoglycemia Hydromorphone HCl (Dilaudid) 0.5 mg IV Q2HP PRN PRN Reason: PAIN LEVEL > 6 Last Admin: 07/19/17 14:47 Dose: 0.5 mg Sodium Chloride (Sodium Chloride 0.9%) 1,000 mls @ 100 mls/hr IV .Q10H [facility] Stop: 07/21/17 23:59 Insulin Glargine (Lantus) 65 unit SQ HS [facility] Last Admin: 07/20/17 20:25 Dose: 65 unit Insulin Human Lispro (Humalog) 0 unit SQ [facility] PRN Reason: Protocol Last Admin: 07/21/17 11:58 Dose: 4 unit Isosorbide Mononitrate (Imdur) [facility] Last Admin: 07/21/17 08:45 Dose: 30 mg Magnesium Hydroxide (Milk Of Magnesia) 30 ml PO DAILYP PRN PRN Reason: Constipation Naloxone HCl (Narcan) 0.1 mg IV Q2MIN PRN PRN Reason: Opiate Reversal Ondansetron HCl (Zofran) 4 mg IV Q6HP PRN PRN Reason: Nausea And Vomiting Oxycodone HCl (Roxicodone) 10 mg PO Q4HP PRN PRN Reason: PAIN LEVEL 3-6 Potassium Chloride (Kdur) 20 meq PO QAMCC [facility] Last Admin: 07/21/17 08:44 Dose: 20 meq Senna (Senokot) 2 tab PO HS [facility] Last Admin: 07/20/17 20:27 Dose: 2 tab Sodium Chloride (Saline Flush) 10 ml IV Q8 [facility] Last Admin: 07/21/17 06:09 Dose: 10 ml Spironolactone (Aldactone) 25 mg PO QDAY [facility] Last Admin: 07/21/17 08:44 Dose: 25 mg Medical - PN: A/P - Time Spent With Patient Total time spent is greater than 50% in coordination of care (as documented) at patient's floor/unit and/or counseling patient: - Narrative A/P Narrative: A/P Pelvis fracture: [facility], pain control, and OT/ PT planned, will likely need SNF for rehab. CK is normal. try to achieve pain control, and improve ambulation. Ortho consult today due to difficulty in achieving control. Dr Mcdonald reported that likely no surgical intervention planned. just pain management and rehab. Leucocytosis, clinically no e/o infection, improving trend. Anemia: Low mcv, seems chr issue, on iron supplements. Intertrigo: clotrimazole in the pelvic region. DM: elevated glucose on presentation, much better now. COntinue to monitor. Hyponatremia: resolved. CAD/ CHF/ CVA: continue on statin, isosorbide, aspirin for now, HTN: Resume home bp meds, bp is stable, monitor DVT lovenox sq Diet Carb consistent Cardiac Full code for now. Medical - PN: Qual - Stroke Symptom Onset Unknown: No - VTE Deep Vein Thrombosis/Pulmonary Embolism Present on Admission: No
[2017-07-21] MEDS ORDERED: 0.9 % SODIUM CHLORIDE 1,000 ML IV SCH (14:00)
[2017-07-21 17:41] LABS: Appearance,Urine HAZY; Bacteria,Urine 0 /hpf (0); Bilirubin,Urine NEG (NEG); Color,Urine YELLOW; Glucose,Urine (UA) 150 mg/dL (NEG); Leukocyte Esterase,Urine 500 /uL (NEG); Mucus,Urine FEW /hpf (0); Protein,Urine 30 mg/dL (NEG); Specific Gravity,Urine 1.029 (1.000-1.035); Urine Blood 0.03 mg/dL (<0.03); Urine Hyaline Cast 8 /lpf (0-2); Urine RBC 7 /hpf (0-1); Urine Squamous Epithelial Cell 11 /hpf (0-4); Urine Transitional Epi Cells 1 /hpf (0-2); Urine WBC 78 /hpf (0-4); Urobilinogen,Urine NEG (NEG)
--- NOTE | 2017-07-21 18:00 | Orthopedic Consult Note ---
History of Present Illness - HPI Patient information: Note initiated : 07/21/17 at 5:55 pm Service Date, if different from initiated Date: [] Patient: Anh Hook 72 y/o F admitted on 07/19/17 for L HipPain r/t Fall/ Pelvis Fracture,Sacral Fracture. Chief Complaint: [left hip pain Patient had a series of ground level falls at home with the most recent being . She was home alone at the time and was on the ground for several hours before receiving help. Prior to that, her states she fell twice more on two separate occasions within a one week or so period. She denies a prior history of frequent falling as well as dizziness, nausea, vomiting, urinary pain or frequency, chest pain or shortness of breath. She also denies or cannot recall whether she hit her head at the time. She was admitted to the hospital on 07/18/[address] and X-rays in the ER confirmed non-displaced pelvic fractures and a non-displaced sacral fracture. Today she reports her pain to reside deep in her left hip/groin and is worse with ambulation and movement. She has been transferring from her bed to the commode with some improvement over the past few days. She denies numbness or tingling in bilateral lower extremities as well as no saddle anesthesia or extremity weakness. Patient also denies calf pain, SOB, chest pain. Her is here with her whom she lives with. She has a complicated PMH significant for many cardiac illnesses, diabetes , CVA, CHF.] Consult date: 07/21/17 Consult reason: other (pelvic and sacral fracture) Review of Systems All systems PM: reviewed and no additional remarkable complaints except as stated Musculoskeletal: as per HPI, back pain, other (left hip pain) Medications and Allergies Home Medications Medication Instructions Recorded Confirmed Type aspirin 81 mg tablet,delayed 81 mg PO QDAY tab 01/03/15 07/19/17 History release ascorbic acid (vitamin C) 500 mg 500 mg PO QDAY #90 tab 01/09/16 07/19/17 Rx tablet ferrous gluconate 325 mg (36 mg 325 mg PO QDAY #90 tab 01/09/16 07/19/17 Rx iron) tablet isosorbide mononitrate ER 30 mg 30 mg PO QAM #30 tab 01/04/17 01/22/18 Rx tablet,extended release 24 hr atorvastatin 80 mg tablet 80 mg PO QDAY #90 tab 12/18/16 07/19/17 Rx spironolactone 25 mg tablet 25 mg PO QDAY #90 tab 12/18/16 07/19/17 Rx duloxetine 40 mg capsule,delayed 40 mg PO QDAY #30 cap 05/06/17 07/19/17 Rx release insulin aspart 100 unit/mL See Dose Instructions SUB-Q TID #3 05/06/17 07/19/17 Rx subcutaneous pen ml insulin glargine 300 unit/mL (1.5 65 unit SUB-Q QHS #1.5 ml 05/06/17 07/19/17 Rx mL) subcutaneous pen potassium chloride ER 10 mEq 20 meq PO QDAY #180 cap 06/29/17 07/19/17 Rx capsule,extended release Carvedilol [Coreg] 6.25 mg PO DAILY 07/19/17 07/19/17 History Furosemide [Lasix] 80 mg PO DAILY 07/19/17 07/19/17 History Allergies Allergy/AdvReac Type Severity Reaction Status Date / Time metformin AdvReac Intermediate Muscle Pain Verified 07/19/17 06:34 [id number] Reductase AdvReac Intermediate Muscle Pain Verified 07/19/17 06: 35 Inhibitor Physical Examination - Hip bilateral Gait: other (non-ambulatory in bed) Tenderness with palpation: none Pain with motion: internal rotation and hip flexion, external rotation and hip flexion ROM: flexion: 90 degrees ROM: internal rotation: 30 degrees ROM: external rotation: 30 degrees Strength: extension: 4/5 Strength: flexion: 4/5 Strength: abduction: 4/5 Strength: adduction: 4/5 Strength: internal rotation: 4/5 Strength: external rotation: 4/5 - Fracture left pelvis Appearance: normal Distal extremity neurovascularly intact: Yes Proximal joint involvement: No Distal joint involvement: No left vertebral column Appearance: normal Distal extremity neurovascularly intact: Yes Proximal joint involvement: No Distal joint involvement: No Assessment and Plan (1) Pelvis fracture Assessment: #1 inferior and superior left pelvic rami non-displaced fractures # 2 non-displaced left sacral fracture Plan: -The imaging was reviewed with Dr. Stephens. No surgical intervention is recommended for these fractures. Patient will continue PT/OT and ambulate as tolerated. This was discussed at length with the patient and her today. [facility]. We will have her follow up at [facility] in 2-4 weeks time for repeat x-rays. Patient and her are in agreement with this plan. -pain control per hospitalist Status: Acute (2) Sacral fracture Status: Acute Results - Labs Result Diagrams: 07/21/17 04:35 07/21/17 04:35 Labs: Abnormal lab results 07/21/17 07/21/17 07/21/17 Range/Units 04:35 04:35 16:43 RBC 3.91 L (4.00-5.20) M/mcL Hgb 9.5 L (12.0-15.0) g/dL Hct 29.0 L (36.0-48.0) % MCV 74.2 L (80.0-100.0) fL MCH 24.4 L (26.0-34.0) pg RDW 16.6 H (11.5-14.5) % [place] # (Auto) 1.0 H (0.1-0.9) K/mcL Chloride 109 H (96-108) mmol/L Carbon Dioxide 19 L (22-30) mmol/L BUN 25 H (8-23) mg/dl Calcium 8.1 L (8.6-10.4) mg/dl Phosphorus 2.3 L (2.7-4.5) mg/dL Lactate Dehydrogenase 259 H (94-250) U/L Urine Protein 30 A (NEG) mg/dL Urine Glucose (UA) 150 A (NEG) mg/dL Urine Occult Blood 0.03 A (<0.03) mg/dL Ur Leukocyte Esterase 500 A (NEG) /uL Urine RBC 7 H (0-1) /hpf Urine WBC 78 H (0-4) /hpf Ur Squamous Epith Cells 11 H (0-4) /hpf Hyaline Casts 8 H (0-2) /lpf H & H 07/18/17 07/19/17 07/20/17 Range/Units 22:05 04:54 04:10 Hgb 11.4 L 11.1 L 9.7 L (12.0-15.0) g/dL Hct 35.2 L 34.3 L 30.2 L (36.0-48.0) % 07/21/17 Range/Units 04:35 Hgb 9.5 L (12.0-15.0) g/dL Hct 29.0 L (36.0-48.0) % All other labs normal. - Diagnostic results Hip x-ray: report reviewed, image reviewed, other (Bilateral hip x-rays show moderate degeneration of the femoroacetabular joint with osteophyte formation. Left superior and inferior pubic rami non-displaced fractures. No other acute abnormalities are identified.) Hip CT: report reviewed, image reviewed, other (CT of the pelvis shows inferior and superior pubic rami non-displaced fractures as well as a non-displaced left sacral fracture. No other bony injuries are appreciated)
--- NOTE | 2017-07-21 18:13 | Discharge Summary ---
Ortho Discharge Plan - General - Patient Instructions Diet: Cardiac, Consistent Carbohydrate Activity: ambulate with assistive device, weight bearing as tolerated - Problem Maintenance (1) Pelvis fracture Status: Acute Qualifiers: Pelvic bone location: pubis Sublocation of pubis: other portion of pubis Laterality: left Fracture healing: with routine healing (2) Sacral fracture Status: Acute Qualifiers: Encounter type: initial encounter Fracture type: closed Fracture alignment: nondisplaced - Follow Up Plan Follow Up Appointments: Danielle Gamboa ARNP [Primary Care Provider] - Maegan Pablo PA-C [Physician Associate Music Professor] - Disposition: [facility] Prognosis: Fair Rehab Potential: Fair Overall status at discharge: patient is progressing back to baseline - Orders For Discharge Additional Discharge Orders: Physical Therapy at Discharge - General Location: Determined By Patient
[2017-07-21] MEDS: cefTRIAXone 1 GM VIAL IV SCH (19:23)
[2017-07-21] MEDS: INSULIN GLARGINE, HUMAN 1 UNIT/0.01 ML SQ SCH (20:13)
[2017-07-21] MEDS: SENNOSIDES 1 TABLET PO SCH (20:14)
[2017-07-21] MEDS: ATORVASTATIN 20 MG TABLET PO SCH (20:14)
[2017-07-22] MEDS: oxyCODONE HCL 5 MG TABLET PO PRN ×2 (02:23→07:51)
[2017-07-22] MEDS: ACETAMINOPHEN 500 MG TABLET PO SCH ×2 (03:45→11:25)
[2017-07-22] MEDS: 0.9 % SODIUM CHLORIDE 10 ML SYRINGE IV SCH (04:30)
[2017-07-22 05:42] LABS: Basophils # (Auto) 0.1 K/mcL (0.0-0.3); Basophils % (Auto) 0.6 % (0.0-2.0); Eosinophils # (Auto) 0.4 K/mcL (0.0-0.7); Eosinophils % (Auto) 4.5 % (0.0-7.0); Granulocytes % (Auto) 61.2 % (38.0-78.0); Lymphocytes # (Auto) 1.8 K/mcL (1.5-4.8); Lymphocytes % (Auto) 21.1 % (15.5-49.0); Mean Cell Volume 75.5 fL (80.0-100.0); Mean Corpuscular HGB Conc 32.6 g/dL (31.0-36.0); Mean Corpuscular Hemoglobin 24.6 pg (26.0-34.0); Monocytes # (Auto) 1.1 K/mcL (0.1-0.9); Monocytes % (Auto) 12.6 % (1.0-12.0); Platelet Count 246 K/mcL (140-440); RBC 3.92 M/mcL (4.00-5.20); Red Cell Distribution Width 16.8 % (11.5-14.5)
[2017-07-22 06:09] LABS: ALT/SGPT 14 U/l (0-40); Albumin 3.2 gm/dL (3.2-5.2); Alkaline Phosphatase 69 U/L (39-117); Bilirubin,Direct < 0.2 mg/dL (0.0-0.3); Blood Urea Nitrogen 20 mg/dl (8-23); Gamma Glutamyl Transpeptidase 33 U/L (5-36); Uric Acid 5.5 mg/dL (2.5-8.0)
[2017-07-22] MEDS: INSULIN LISPRO 1 UNIT/0.01 ML UNIT SQ SCH ×2 (07:27→11:24)
[2017-07-22] MEDS: DULoxetine 20 MG CAPSULE PO SCH (08:49)
[2017-07-22] MEDS: cefTRIAXone 1 GM VIAL IV SCH (08:49)
[2017-07-22] MEDS: CARVEDILOL 6.25 MG TABLET PO SCH (08:50)
[2017-07-22] MEDS: SPIRONOLACTONE 25 MG TABLET PO SCH (08:50)
[2017-07-22] MEDS: FERROUS GLUCONATE 324 MG TABLET PO SCH (08:50)
[2017-07-22] MEDS: FAMOTIDINE/PF 20 MG/2 ML VIAL IV SCH (08:50)
[2017-07-22] MEDS: ENOXAPARIN 40 MG/0.4 ML SYRINGE SQ SCH (08:51)
[2017-07-22] MEDS: ASCORBIC ACID 500 MG TABLET PO SCH (08:51)
[2017-07-22] MEDS: ASPIRIN 81 MG TAB.CHEW PO SCH (08:51)
[2017-07-22] MEDS: POTASSIUM CHLORIDE 20 MEQ TABLET PO SCH (08:51)
[2017-07-22] MEDS: ISOSORBIDE MONONITRATE 30 MG TAB.XL.24H PO SCH (08:51)
[2017-07-22] MEDS: CELECOXIB 200 MG CAPSULE PO SCH (08:51)
[2017-07-22] MEDS: CLOTRIMAZOLE CRM 1% 1 DOSE TUBE TOPICAL SCH (08:52)
--- NOTE | 2017-07-22 11:10 | Discharge Summary ---
Medical - DS: Prov Patient information: Note initiated : 07/22/17 at 11:07 am Service Date, if different from initiated Date: [] Patient: Anh Hook 72 y/o F admitted on 07/19/17 for L HipPain r/t Fall/ Pelvis Fracture,Sacral Fracture. Chief Complaint: [] Date of admission: 07/19/17 00:34 Discharge date: 07/22/17 Primary care physician: Danielle Gamboa Consults: 07/18/17 21:59 Consult to Physician [CONS] Stat Comment: Consulting Provider: Eamon Whitaker Reason For Exam: Physician to Consult 07/20/17 16:57 Consult to Physician [CONS] Routine Comment: Consulting Provider: [facility] Reason For Exam: Physician to Consult 07/21/17 10:27 Consult to Physician [CONS] Routine Comment: Consulting Provider: Alphonse Stephens Reason For Exam: Physician to Consult Medical - DS: Meds - Discharge Medications Active and Home Medications: Home Medications aspirin 81 mg tablet,delayed release 81 mg PO QDAY tab 01/03/15 [History Confirmed 07/19/17 Last Taken 07/18/17 08:00] ascorbic acid (vitamin C) 500 mg tablet 500 mg PO QDAY #90 tab 01/09/16 [Rx Confirmed 07/19/17 Last Taken 07/18/17 08:00] ferrous gluconate 325 mg (36 mg iron) tablet 325 mg PO QDAY #90 tab 01/09/16 [ Rx Confirmed 07/19/17 Last Taken 07/16/17 08:00] isosorbide mononitrate ER 30 mg tablet,extended release 24 hr 30 mg PO QAM #30 tab 07/01/16 [Rx Confirmed 07/19/17 Last Taken 07/18/17 08:00] atorvastatin 80 mg tablet 80 mg PO QDAY #90 tab 12/18/16 [Rx Confirmed 07/19/17 Last Taken 07/18/17 20:00] spironolactone 25 mg tablet 25 mg PO QDAY #90 tab 12/18/16 [Rx Confirmed Last Taken 07/18/17 08:00] duloxetine 40 mg capsule,delayed release 40 mg PO QDAY #30 cap 05/06/17 [Rx Confirmed 07/19/17 Last Taken 07/18/17 08:00] insulin aspart 100 unit/mL subcutaneous pen See Dose Instructions SUB-Q TID #3 ml 05/06/17 [Rx Confirmed 07/19/17 Last Taken 07/18/17 18:00] insulin glargine 300 unit/mL (1.5 mL) subcutaneous pen 65 unit SUB-Q QHS #1.5 ml 05/06/17 [Rx Confirmed 07/19/17 Last Taken 07/17/17 20:00] potassium chloride ER 10 mEq capsule,extended release 20 meq PO QDAY #180 cap [Rx Confirmed 07/19/17 Last Taken 07/18/17 08:00] Carvedilol [Coreg] 6.25 mg PO DAILY 07/19/17 [History Confirmed 07/19/17 Last Taken 07/18/17 08:00] Furosemide [Lasix] 80 mg PO DAILY 07/19/17 [History Confirmed 07/19/17 Last Taken 07/18/17 08:00] Medical - DS: Hosp Hospital course: Discharge diagnoses Pelvis fracture: secondary to [facility] fall, managed with pain control, and OT/ PT . Discharging to SNF. Orthopedics reviewed. Will follow up with orthopedics as outpatient. continue orthopedic recommendations including weightbearing Anemia: Low mcv, seems chr issue, on iron supplements.Follow-up PCP Intertrigo: continue clotrimazole in the pelvic regionas needed. DM: continue home meds Hyponatremia: resolved. CAD/ CHF/ CVA: continue on statin, isosorbide, aspirin for now, HTN: Resume home bp meds, bp is stable, monitor BRIEF HOSPITAL COURSE Ms. Hook is a 72 year old Female with multiple medical issues presented to the ER Today after a fall She notes she sustained a mechanical fall today, her walker got out of hand and she fell on her left side, she has been having pain since then, pain is severe, worse with movement, better with rest and pain meds. She denies any other injury , no head injury, she denies any prodromal symptoms, no cp, sob, nausea, palpitation, no LOC, prior to the fall she was not able to take care of self she was brought to the ER for further eval In the ER her X ray of the pelvis and CT pelvis showed a pelvis fracture, no other injuries. Labs show mild leucocytosis, elevated glucose. Patient was admitted to the hospital for pelvis fracture, pain management and rehab. Given he comorbidities and her inherent weak state she will need to be in the hospital for > 3 midnights and therefore is being admitted as inpatient status. Patient is unsure about code status, will have her be full code for now. Jul 19 Patient seen examined, no acute overnight events, pt still has pain, not worked with PT yet, encouraged to do so no other complaints lying comfortably in bed for now. Jul 20 Patient seen examined, no acute ovenright events, did not work with pt yesterday , still feels has pain add scheduled tylnoel 1mg q8hrs to her regime, add celecoxib 200mg daily, continue oxycodone and IV dilaudid prn for now. Pt encouraged to work with PT to help with ambulation slight worsening of renal function, IVF ordered. Jul 21 patient seen examined, no acute issues, unable to void completely likely from pain, will monitor. Paitent renal functin is better with fluids, pt has poor oral intake, will start just give another 1L ns to maintain hydration. Patient still complaints of pelvis pain, and not very keen on moving, increase dose of oxycodone from 5mg to 10mg Consulted Ortho for further evaluation, They reviewed CT and noted that patient will likely not need any surgical intervention, pain management and therapy is needed likely needs SNF, anticipate d/c tomorrow 07/22-patient doing well. Discharge to SNF today. Orthopedics reviewed patient and recommendedno surgical intervention at this time. Advised PT OTat SNFalong with follow-up in 2-4 weeks 4 repeat x-rays. discharge instructions as below Discharge diagnosis: . - Time Spent with Patient Total time spent providing and/or coordinating discharge services: Greater than 30 minutes Medical - DS: Exam - Constitutional Vitals: Vital Signs Temp Pulse Resp BP Pulse Ox 07/22/17 07:29 97.4 F 77 16 101/57 97 07/22/17 04:00 97.4 F 83 16 130/79 100 07/22/17 00:00 97.4 F 78 14 109/69 98 07/21/17 19:13 97.4 F 86 16 110/62 99 07/21/17 15:26 96.9 F L 14 98/62 99 07/21/17 11:36 97.0 F 14 94/61 96 Intake and Output 07/21/17 07/22/17 07/22/17 21:59 05:59 13:59 Intake Total 1560 / 1560 0 / 0 240 / 240 Output Total 120 / 120 375 / 375 Balance 1440 / 1440 -375 / -375 240 / 240 Intake: Oral 1560 / 1560 0 / 0 240 / 240 Output: Void Amount 120 / 120 375 / 375 Other: Meal Dinner Breakfast Percent of Meal Consumed 50% 100% Feeding Ability Assist with Tray Set Up Weight 191 lb Medical - DS: Data Labs on day of discharge: Labs from last 24 hours 07/22/17 07/22/17 07/21/17 04:35 04:35 16:43 WBC 8.6 RBC 3.92 L Hgb 9.6 L Hct 29.6 L MCV 75.5 L MCH 24.6 L MCHC 32.6 RDW 16.8 H Plt Count 246 MPV 7.7 Gran % 61.2 Lymph % (Auto) 21.1 [place] % (Auto) 12.6 H Eos % (Auto) 4.5 Baso % (Auto) 0.6 Gran # 5.3 Lymph # (Auto) 1.8 [place] # (Auto) 1.1 H Eos # (Auto) 0.4 Baso # (Auto) 0.1 Sodium 140 Potassium 4.3 Chloride 109 H Carbon Dioxide 19 L Anion Gap 12.0 BUN 20 Creatinine 1.0 GFR Calculation 56 Glucose 64 L Uric Acid 5.5 Calcium 8.0 L Phosphorus 2.9 Magnesium 2.2 Total Bilirubin 0.3 Direct Bilirubin < 0.2 GGT 33 AST 22 ALT 14 Alkaline Phosphatase 69 Lactate Dehydrogenase 287 H Total Protein 6.4 Albumin 3.2 Globulin 3.2 Albumin/Globulin Ratio 1.0 Triglycerides 83 Urine Color Yellow Urine Appearance Hazy Urine pH 5.0 Ur Specific [place] 1.029 Urine Protein 30 A Urine Glucose (UA) 150 A Urine Ketones Neg Urine Occult Blood 0.03 A Urine Nitrate Neg Urine Bilirubin Neg Urine Urobilinogen Neg Ur Leukocyte Esterase 500 A Urine RBC 7 H Urine WBC 78 H Ur Squamous Epith Cells 11 H Ur Transition Epith Cell 1 Urine Bacteria 0 Hyaline Casts 8 H Urine Mucus Few Medical - DS: A/P - Patient/Caregiver Discharge Instructions Activity: as per physical therapy Diet: Regular Diet Additional Instructions: Follow-up PCP in 5 days F/u orthopedics as scheduled by orthopedics in 2-4 weeks weightbearing as per orthopedic recommendations Continue aggressive bowel regimen to prevent constipation Continue fall precautions Continue aggressive PT OT evaluation and treatment at SNF. ST eval and treatment if indicated All meals on chair sitting upright at 90 degrees to prevent aspiration Return to ER if worsening pain/fall/fever Continue diet and activity as advised Discussed importance of medication adherence Please review medication list with patient prior to discharge Please schedule follow-up with PCP/Providers prior to discharge and provide printouts Portions of this chart may have been created with [employer] voice recognition software. Occasional wrong-word or ?sound-like? substitutions may have occurred due to the inherent limitations of voice recognition software. Please read the chart carefully and recognize, using context, where the substitutions have occurred. CC- PCP Other Amb Orders: Physical Therapy at Discharge - General Location: Determined By Patient - Follow up Plan Follow up with: Maegan Pablo PA-C [Physician School Superintendent] - (Please call/schedule follow up in 2-4 week with Maegan or Dr Stephens.) Danielle Gamboa ARNP [Primary Care Provider] - Disposition: Xfer SNF Prognosis: Fair Rehab Potential: Fair I certify that the patient requires SNF services: Yes Overall status at discharge: patient is progressing back to baseline Medical - DS: Qual - VTE Deep Vein Thrombosis/Pulmonary Embolism Present on Admission: No
== END 2017-07-22 13:15 | DRG 552 ==
LOC: ED 19:16 → MEDSUR 07-19 00:34
PROVIDERS: ADMIT Internal Medicine; ATTEND Internal Medicine